=== PATIENT | female | born 1940 | race Caucasian/White ===

== ENCOUNTER 2023-07-31 11:17 | Outpatient (RCR) | payer MEDICARE ==
[~2023-07-31 11:17] MED LIST: ALPRAZOLAM0.25 MG PO; ASA325 PO; ATELVIA35 MG PO; ATORVASTATIN CA20 MG PO; CELEBREX200 MG PO; CLOPIDOGREL75 MG PO; CYMBALTA60 MG PO; EPITOL200 MG PO; LISINOPRIL-HCT1 EAC2 PO; NORCO 7.5-3251 EACH PO; OMEPRAZOLE40 MG PO; PANTOPRAZOLE SO40 MG PO; ROZEREM8 MG PO; STOOL SOFTENER100 M1 PO; TYLENOL WITH C1 EAC1 PO; VESICARE10 MG PO; VITAMIN B12-FO1 EACH PO; VITAMIN C500 M1 PO
== END 2023-08-14 ==
LOC: OT 11:17
PROVIDERS: ATTEND Physician Assistant
DX: S52.591A Other fractures of lower end of right radius, initial encounter for closed fracture (principal)